=== PATIENT | female | born 1960 | race African-American/Black ===

== ENCOUNTER 2019-11-13 14:38 | Emergency (ER) | payer OTHER ==
[~2019-11-13] VITALS: Ht 175.3 cm; Wt 113.4 kg
[2019-11-13] MEDS ORDERED: KETAMINE HCL INJ 50 MG/ML 10 ML VIAL IV ONE ×3 (16:30→17:00)
[2019-11-13] MEDS ORDERED: PROPOFOL IV EMULSION 10 MG/ML 20 ML VIAL IV ONE ×2 (16:30→17:00)
--- NOTE | 2019-11-13 16:46 | Diagnostic Imaging Report ---
X-ray right shoulder 2 views History: Fall. Shoulder and upper arm pain Findings: There is fracture dislocation of the right glenohumeral joint. The humeral head is dislocated inferiorly. The greater tubercle is from the humeral head with comminution of the greater tubercle. There is irregularity of the inferior glenoid labrum suggesting injury to the glenoid and labrum. There is no associated clavicular fracture or AC joint separation. There is no visualized fracture. Impression: Inferior fracture dislocation at the right glenohumeral joint with fractures of the glenoid, the labrum, the humeral head and the greater tubercle as described. Signed by: Elvis Pool MD on 11/13/2019 4:43 PM
--- NOTE | 2019-11-13 16:48 | Diagnostic Imaging Report ---
X-ray right humerus 2 views History: Fall Findings: Please see the report on right shoulder. There is no fracture of the humerus surgical neck, shaft of the distal humerus. Impression: Fracture with inferior dislocation of the right glenohumeral joint with fracture involving the glenoid, the labrum, the humeral anatomic head, the greater tubercle. Signed by: Elvis Pool MD on 11/13/2019 4:45 PM
--- NOTE | 2019-11-13 19:06 | Diagnostic Imaging Report ---
SHOULDER RIGHT 1 VIEW - Multiple views HISTORY: ^post reduction ^[id number] ^[id number] COMPARISON: Performed earlier same day. FINDINGS/IMPRESSION: Comminuted fracture of the right humeral head with inferior displacement of humeral head with respect to the glenoid, unchanged from prior exam. Signed by: John Nguyen MD on 11/13/2019 7:03 PM
--- NOTE | 2019-11-13 19:45 | NUR ---
PT A BIT CONFRONTATIONAL, DENIES WANTING TO LEAVE AMA, STATES THAT SHE JUST THINKS THAT SHE DOES NOT NEED SURGERY. DALLAS DAVIS SPOKE TO PT, AND AMA PAPERWORKED SIGNED. PT RT ARM IN SLING, AMB OUT TO LOBBY NO S/S DISTRESS NOTED.
== END 2019-11-13 20:03 | disposition left against medical advice (07) ==
LOC: ER 14:38
DX: M25.511 Pain in right shoulder (principal); S43.014A Anterior dislocation of right humerus, initial encounter; S42.291A Other displaced fracture of upper end of right humerus, initial encounter for closed fracture; W01.0XXA Fall on same level from slipping, tripping and stumbling without subsequent striking against object, initial encounter; I10 Essential (primary) hypertension; G40.909 Epilepsy, unspecified, not intractable, without status epilepticus
CPT/HCPCS: 99283